=== PATIENT | male | born 1995 | race Caucasian/White ===

== ENCOUNTER 2017-02-03 22:55 | Emergency (ER) | payer OTHER ==
[2017-02-03 22:59] VITALS: BP 126/78; PULSE 91; RESP 16; TEMP 97.9; O2SAT 95
--- NOTE | 2017-02-03 23:08 | EDPHY ---
H & P Time Seen by Provider: 02/03/17 23:02 HPI/ROS: CHIEF COMPLAINT: Forehead laceration HISTORY OF PRESENT ILLNESS: 21-year-old male arrives via private vehicle complaining of laceration is glabella after he walked into a door sustaining a vertically-oriented laceration to the glabella. No loss of consciousness. No nausea no vomiting. Occurred shortly prior to arrival. PHYSICAL EXAM (Prior to examination, patient consented to physical exam, hands were washed and my usual and customary physical exam procedures followed) 1) GENERAL: Well-developed, well-nourished, alert and oriented. Appears to be in no acute distress. 2) HEAD: Normocephalic. Vertically-oriented 1.5 cm laceration to the glabella. Linear. Superficial. 3) HEENT: sclera anicteric. Pupils equal and reactive to light bilaterally. No raccoon eyes no Hernandes sign. No rhinorrhea. No otorrhea. No hemotympanum. 4) LUNGS: Breathing comfortably. Smoking Status: Light smoker Constitutional: Initial Vital Signs Temperature (C) 36.6 C 02/03/17 22:57 Heart Rate 91 02/03/17 22:57 Respiratory Rate 16 02/03/17 22:57 Blood Pressure 126/78 H 02/03/17 22:57 O2 Sat (%) 95 02/03/17 22:57 Allergies/Adverse Reactions: No Known Allergies Allergy (Unverified 02/03/17 22:59) Home Medications: Medication Instructions Recorded NK [No Known Home Meds] 02/03/17 MDM/Departure - MDM Procedures: Procedure: Laceration repair with tissue adhesive Verbal consent was obtained from the patient. Wound was anesthetized with 1% lidocaine with epinephrine. The wound was scrubbed and explored to its base with a gloved finger. No foreign body seen, no foreign bodies palpated. There were no deep structures involved. The wound was repaired with tissue adhesive. The procedure was performed by myself. Patient has been informed that scarring will occur, although every effort has been made to minimize this. ED Course/Re-evaluation: Care of patient under supervision of secondary supervising physician Dr Andrade . I do not think that imaging of the head currently indicated as I have a low pretest index suspicion for intracranial hemorrhage and/or skull fracture. He has been given head injury precautions instructions - Depart Disposition: Home, Routine, Self-Care Clinical Impression: Forehead laceration Qualifiers: Encounter type: initial encounter Qualified Code(s): S01.81XA - Laceration without foreign body of other part of head, initial encounter Condition: Good Instructions: Laceration (ED), Skin Adhesive Care (ED) Additional Instructions: ALTHOUGH THERE IS NO EVIDENCE OF SERIOUS HEAD INJURY AT THIS TIME, DELAYED SIGNS CAN APPEAR 24 TO 48 HOURS AFTER INJURY. WE RECOMMEND THAT YOU DESIGNATE A FRIEND OR FAMILY MEMBER TO OBSERVE YOU OVER THE NEXT FEW DAYS TO ENSURE THAT YOUR CONDITION IS PROGRESSING NORMALLY. PLEASE RETURN TO THE EMERGENCY DEPARTMENT (ED) IMMEDIATELY IF YOU HAVE INCREASED HEADACHE, PERSISTENT HEADACHE , VOMITING, WEAKNESS, CONFUSION OR VISUAL PROBLEMS. WE RECOMMEND THAT YOU DO NOT RESUME CONTACT SPORTS OR ACTIVITIES THAT TAKE COORDINATION OR BALANCE SUCH SKIING OR RIDING A BICYCLE UNTIL CLEARED TO DO SO BY YOUR DOCTOR OR BY A NEUROLOGIST. Referrals: [facility],. [Clinic] - 2-3 days without fail
[2017-02-03] MEDS ORDERED: SKIN ADHESIVE (DERMABOND) 1 EACH TP ONE (23:09)
== END 2017-02-03 23:43 | disposition home or self-care (01) ==
PROC: 0HQ1XZZ Repair Face Skin, External Approach (ICD-10-PCS; principal; 2017-02-03)
DX: S01.81XA Laceration without foreign body of other part of head, initial encounter (principal); F17.200 Nicotine dependence, unspecified, uncomplicated; X58.XXXA Exposure to other specified factors, initial encounter; Y99.8 Other external cause status; Y93.01 Activity, walking, marching and hiking